=== PATIENT | male | born 1985 | race Caucasian/White ===

== ENCOUNTER 2017-01-13 02:04 | Emergency (ER) | payer OTHER ==
--- NOTE | 2017-01-13 06:35 | ED CLINICAL REPORT ---
Clinical Report - Physicians/Mid Levels [facility] [address] [place] [address] 01/13/2017 2:05 Patient: ZAY RODRIGUEZ Time Seen: 220. Arrived- By private vehicle. Historian- patient and mother. HISTORY OF PRESENT ILLNESS Chief Complaint: PALPITATIONS. It is described as a fast heart beat. Modifying factors. Not worsened by anything. Not relieved by anything. This started today and is still present (Unchanged). It was abrupt in onset and has been constant but is not gone now. The patient has had chest pain. ( reports lleft shoulder discomfort. No trauma. Symptoms occurred at the same time the palpitations happened. Reports no leg swelling, hemoptysis, recent surgery or immobilization/trauma. Reports no history of cancer or history of DVT/PE.). Similar symptoms previously: None. Recent medical care: Not recently seen/assessed. REVIEW OF SYSTEMS No fever, nausea, skin rash or vomiting. All systems otherwise negative, except as recorded above. PAST HISTORY See nurses notes. Medications: GuaiFENesin Oral. Allopurinol. Amlodipine Besy-Benazepril HCl Oral. Primidone Oral. Wellbutrin Oral. Allergies: Amoxicillin. SOCIAL HISTORY Never smoker. No alcohol use or drug use. No recent travel. Is a local resident. ADDITIONAL NOTES The nursing notes have been reviewed. PHYSICAL EXAM Vital Signs: 01/13/2017 02:17 BP: 198/110. 01/13/2017 02:08 BP: 166/117. HR: 112. RR: 24. O2 saturation: 99%. Temp: 98.6 F. Pain level now: 8/10. Oxygen saturation normal. Appearance: Alert. Oriented X3. No acute distress. Eyes: Pupils equal, round and reactive to light. Eyes normal inspection. ENT: Ears normal. Nose normal. Pharynx normal. Neck: Normal inspection. Neck supple. CVS: Normal heart rate and rhythm. Heart sounds normal. Pulses normal. Respiratory: No respiratory distress. Breath sounds normal. Chest nontender. No rales, rhonchi or wheezes. Abdomen: Soft and nontender. Bowel sounds normal. Back: Normal external inspection. Skin: Skin warm and dry. Normal skin color. No rash. Normal skin turgor. Extremities: Extremities exhibit normal ROM. No lower extremity edema. Neuro: Oriented X 3. No motor deficit. No sensory deficit. LABS, X-RAYS, AND EKG EKG: No acute ischemia. Normal sinus rhythm. Rate: 98. Normal P waves. Normal ELISSA. Normal QRS complex. Normal axis. Normal ST and T waves, QT and QTc. Chest X-ray: No acute disease. Normal lung markings present. Normal heart size. Mediastinum normal. Great vessels normal. Soft tissues normal. No infiltrate. No fracture. No bony lesion present. Views: AP (portable). The X-rays were independently viewed by me and interpreted contemporaneously by me. Laboratory Tests: UA-Culture if indicated: (ELEANOR: 01/13/2017 05:10) [facility] Final results Test Result Flag Units (Reference) URINE COLOR YELLOW URINE APPEARANCE CLEAR URINE GLUCOSE TRACE (NEGATIVE) URINE BILIRUBIN NEGATIVE (NEGATIVE) URINE KETONE NEGATIVE (NEGATIVE) URINE SPECIFIC GRAVITY 1.020 (1.010-1.030) URINE PH 6.0 (5.0-8.0) URINE PROTEIN 3+ (NEGATIVE) URINE UROBILINOGEN 0.2 EU/dL (0.2-1.0) URINE NITRITE NEGATIVE (NEGATIVE) URINE BLOOD 1+ (NEGATIVE) URINE LEUK ESTERASE NEGATIVE (NEGATIVE) URINE RBC 0-1 rbc/hpf (0-1) URINE WBC 0-1 wbc/hpf (0-1) URINE EPITHELIAL CELLS 0-1 EPI/hpf (0-5) URINE BACTERIA NONE SEEN (NONE SEEN) URINE COMMENT CULT NOT INDICATED URINE CULTURES ARE SET-UP BASED ON THE FOLLOWING CRITERIA:POSITIVE NITRITEPOSITIVE LEUKOCYTE ESTERASEGREATER THAN 10 WHITE BLOOD CELLSMODERATE (2+) OR GREATER BACTERIA CBC w Diff: (ELEANOR: 01/13/2017 03:00) ( [facility] [place] 01/13/2017 03:13) Final results Test Result Flag Units (Reference) WHITE BLOOD COUNT 9.4 K/uL (4.5-11.5) RED BLOOD COUNT 4.84 M/uL (4.50-5.90) HEMOGLOBIN 14.6 gm/dL (13.5-17.5) HEMATOCRIT 44.4 % (41.0-53.0) MEAN CELL VOLUME 92 fL (80-100) MEAN CORPUSCULAR HGB 30 pg (26-34) MEAN CORPUSCULAR HGB CONC 33 g/dL (31-37) RED CELL DISTRIBUTION WIDTH 14.7 % (11.6-14.8) PLATELET COUNT 361 K/uL (150-400) NEUTROPHIL % 67.9 % (50-75) LYMPH % 17.3 L % (25-40) MONO % 9.3 % (3-14) EOSINOPHIL % 4.9 H % (0-4) BASOPHIL % 0.6 % (0-2) PT with INR: (ELEANOR: 01/13/2017 03:00) ( [facility] 01/13/2017 03:21) Final results Test Result Flag Units (Reference) INR 0.9 (0.8-1.2) Low Intensity Therapy: INR 1.5-2.0 PT range 18.5-23.1Mod.Intensity Therapy: INR 2.0-3.0 PT range 23.1-31.5High Intensity Therapy: INR 2.5-3.5 PT range 27.4-35.5High Intensity Therapy 2: INR 3.0-4.0 PT range 31.5-39.3 Troponin-I: (ELEANOR: 01/13/2017 05:10) ( [facility] 01/13/2017 06:24) Final results Test Result Flag Units (Reference) TROPONIN I 0.06 ng/mL (0.00-1.5) TROPONIN REFERENCE RANGE:<0.1 NEGATIVE0.1-1.5 INDETERMINANT>1.5 POSITIVE Urine Drug Screen: (ELEANOR: 01/13/2017 05:10) ( [facility] 01/13/2017 06:24) Final results Test Result Flag Units (Reference) AMPHETAMINE/METHAMPHETAMINE NEGATIVE (NEGATIVE) BARBITURATE POSITIVE H (NEGATIVE) BENZODIAZEPINE NEGATIVE (NEGATIVE) CANNABINOID NEGATIVE (NEGATIVE) COCAINE NEGATIVE (NEGATIVE) ECSTASY POSITIVE H (NEGATIVE) METHADONE NEGATIVE (NEGATIVE) OPIATE NEGATIVE (NEGATIVE) The urine drug screen is a qualitative screening test fordrug overdose and abuse. All screen results should beconsidered as presumptive.Drugs screened for are as follows:BenzodiazepinesCocaineAmphetamines/MetamphetaminesTHC (Tetrahydrocannabinol)OpiatesBarbituratesEcstasyMethadonePositive results are unconfirmed. For confirmation, notifythe lab for the specimen to be sent to the reference lab.All confirmations must be performed by a differentmethodology.The ingestion of natural herbal and plant productscontaining Ephedra/Ephedra metabolites can produce in urineone or more substances capable of cross reacting withamphetamine/methamphetamine immunoassays. These testsprovide a preliminary result only. A more specificalternative chemical method must be used to obtain aconfirmed analytical result. CMP: (ELEANOR: 01/13/2017 03:00) ( [facility] 01/13/2017 03:28) Final results Test Result Flag Units (Reference) GLUCOSE 108 mg/dL (70-110) BUN 70 H mg/dL (7-18) CREATININE 4.0 H mg/dL (0.6-1.3) Estimated GFR 18.71 mL/min Estimated GFR- 22.67 mL/min Note: Persistent reduction over 3 months in eGFR<60 mL/min/1.73 m2 defines CKD. Patients with eGFR values>=60 mL/min/1.73 m2 may also have CKD if evidence ofpersistent proteinuria. Additional information may be foundat www.kidney.org. SODIUM 135 L mmol/L (136-145) POTASSIUM 3.9 mmol/L (3.5-5.1) CHLORIDE 101 mmol/L (98-107) CARBON DIOXIDE 25 mmol/L (21-32) CALCIUM 9.6 mg/dL (8.5-10.1) TOTAL PROTEIN 8.1 g/dL (6.4-8.2) ALBUMIN 3.4 g/dL (3.3-5.0) BILIRUBIN, TOTAL 0.2 mg/dL (0.0-1.0) ALKALINE PHOSPHATASE 112 U/L (46-116) AST (SGOT) 21 U/L (15-37) ALT (SGPT) 28 U/L (12-78) TROPONIN I 0.06 ng/mL (0.00-1.5) TROPONIN REFERENCE RANGE:<0.1 NEGATIVE0.1-1.5 INDETERMINANT>1.5 POSITIVE . PROGRESS AND PROCEDURES Course of Care: The patient is a pleasant 31-year-old male with past medical history significant for chronic kidney disease and hypertension presented for evaluation of palpitations and chest pain. Patient with no other cardiac risk factors otherwise. Patient will be evaluated with chest x-ray, EKG, and laboratory studies including urinalysis. pain medication provided here in the emergency department. The patient and mother agreeable to the treatment plan. Because of thetime course of the patient's onset of pain, would be concern for possible delay in elevation of troponin. Patient will be evaluated with a delta troponin It the first troponin is noted to be normal. Patient is a low risk on well's criteria for pulmonary embolism. Do not feel further workup is required at this time. The patient's first troponin is noted be negative. No acute abnormalities. Patient reports improvement with his symptoms here in the emergency department. A second troponin has been ordered. Patient's workup is noted to be negative for any acute myocardial infarction. Patient with a troponin 2 which are negative and normal. Patient with elevation in creatinine which appears to be at baseline per his history. Patient states that his"kidney function "is at 25. Because the patient's negative workup. Emergency department and otherwise lack of risk factors for coronary artery disease and relatively young age, feel the patient is a stable outpatient candidate. No acute abdomen maladies noted on patient's workup. Had a discussion with the patient in regards his workup in the emergency department diagnosis, home care, follow-up, and return precautions. All questions have been answered. The patient expressed understanding of these instructions and was agreeable to them. CLINICAL IMPRESSION Essential hypertension. Acute nontraumatic pain in the left upper extremity (shoulder) .12 lead EKG performed. INSTRUCTIONS Warnings: GENERAL WARNINGS: Return or contact your physician immediately if your condition worsens or changes unexpectedly, if not improving as expected, or if other problems arise. SPECIFICALLY, return if you develop chest, neck, jaw, shoulder, arm, or back pain, difficulty breathing, a fluttering sensation in your chest, lightheadedness, fainting, excessive fatigue, or sudden sweating. Your Current Medications: CONTINUE TAKING THE FOLLOWING MEDICATIONS: Allopurinol. Amlodipine Besy-Benazepril HCl Oral. GuaiFENesin Oral. Primidone Oral. Wellbutrin Oral. Prescription Medications: Flexeril 10 mg: take 1 orally every 8 hours as needed for muscle spasm or pain. Dispense twenty (20). No refills. Substitution is permissible. Follow-up: Return to the emergency department as needed. Follow up with your doctor in three days. Reason for referral: recheck today's concerns. Screening today revealed the patient's blood pressure to be in the normal range. The patient should follow up with a primary care provider for blood pressure management. Understanding of the discharge instructions verbalized by patient. (Electronically signed by Hermann Ferguson Dr. 01/15/2017 5:30)
--- NOTE | 2017-01-13 06:35 | ED NURSING NOTES ---
Clinical Report - Nurses [facility] [address] [place] [address] 01/13/2017 2:05 [id number] Triage time 02:09. Acuity: LEVEL 3. Chief Complaint: (neck and left shoulder pain, increases with arm movement). Alert. NICHOL COMA SCORE: Nichol Coma Scale: 15- eyes open spontaneously (4); best verbal response- oriented x 4 (5); best motor response- obeys commands (6). --02:17 Ciro Núñez R.N. 02:01/13/17. BP: 166/117 taken on the left arm. HR: 112. RR: 24 (regular and unlabored). O2 saturation: 99% on room air. Temp: 98.6 F (oral). Pain level now: 04/12. --02:17 Ciro Núñez R.N. <<STRICKEN ENTRY-- 02:01/13/17. BP: 166/117. HR: 112. RR: 24 (regular and unlabored). O2 saturation: 99% on room air. Temp: 98.6 F (oral). Pain level now: 04/12. --02:17 Ciro Núñez R.N. --END STRIKE>> Change to Details. --02:17 Ciro Núñez R.N. 02:01/13/17. BP: 198/110 taken on the right arm. --02:17 Ciro Núñez R.N. Acuity: LEVEL 2. --02:21 Ciro Núñez R.N. Height/Length: 64 inches. --02:10 Ciro Núñez R.N.. Weight: 117.9 kg stated. BMI: 44.6. --02:10 Ciro Núñez R.N. Medications Allopurinol. Amlodipine Besy-Benazepril HCl Oral. Primidone Oral. Wellbutrin Oral. --02:11 Ciro Núñez R.N. GuaiFENesin Oral. --02:12 Ciro Núñez R.N. Allergies Amoxicillin. --02:11 Ciro Núñez R.N. History Arrived by private vehicle, and accompanied by mother. Onset. (3 days ago). SOCIAL HX: Never smoker. No drug use. ( denies HI/SI, states that he feels safe at home). --02:17 Ciro Núñez R.N. PROBLEMS: Adverse Drug Reaction. Renal Insufficiency. Urethritis. Hypertonia. Immunizations. Hydrocephalus. ADD - Attention Deficit Disorder. Hypertension. Depression. Kidney disease. --02:11 Ciro Núñez R.N. ADDITIONAL SURGERIES: "brain shunt". Nephrectomy. --02:11 Ciro Núñez R.N. Interventions ID band on patient. To treatment room. --02:17 Ciro Núñez R.N. PHYSICAL ASSESSMENT Ambulatory to room. ( left shoulder and neck pain for 3 days, pt states having similar pain in left shoulder >1 week ago.). GENERAL / NEURO / PSYCH: Alert. Oriented X 4. HEENT: Mucous membranes are pink. RESPIRATORY: Chest nontender. Breath sounds within normal limits. CVS: Cardiac rhythm: sinus tachycardia. Capillary refill less than 2 seconds. GI / : Abdomen soft and nontender. SKIN: Skin is warm and dry. --02:20 Ciro Núñez R.N. ( Patient states that he forgot to take his morning medications today). --02:23 Ciro Núñez R.N. NURSING PROGRESS NOTES ekg monitor tech, pulse oximeter and NIBP monitor placed on patient. Patient gowned. Head of bed elevated. Reassurance given. Two patient identifiers checked. Call light placed in reach. Side rails up x 1. Bed placed in lowest position. Brakes of bed on. Patient ready for evaluation- chart flagged. Patient waiting for evaluation. --02:23 Ciro Núñez R.N. EKG time: (0238). EKG was ordered, performed by a tech and shown to the ED physician. --02:40 Mariposa Cárdenas 02:52 01/13/2017 Site #1 started via IV in the left antecubital space with an 20g angiocath, with aseptic technique and good blood return; one attempt. Blood drawn: rainbow set. Labeled in the presence of the patient and sent to the lab. Saline lock flushed with 10 mL saline. --03:07 Ciro Núñez R.N. 02:55 01/13/2017 Metoprolol (Metoprolol Tartrate) IVP 5 mg given over 5 minute(s) via site #1. Allergies verified and confirmed 5 rights. IV patency established. IV site checked: no pain, redness, or swelling. IV flushed thoroughly pre- and post-medication administration. IVP given by RN. --03:07 Ciro Núñez R.N. 04:12 01/13/2017 Morphine IVP 4 mg given over 1 minute(s) via site #1. Allergies verified, confirmed 5 rights and sedative warning given to the patient and patient's family. IV patency established. IV site checked: no pain, redness, or swelling. IV flushed thoroughly pre- and post-medication administration. IVP given by RN. --04:15 Rajani Jaramillo R.N. 06:39 01/13/2017 Site #1 removed upon discharge. Manual pressure and bandage applied. --06:39 Ciro Núñez R.N. DISPOSITION / DISCHARGE Departure time: 06:47. Condition at departure: stable. No learning barriers present. Discharge instructions provided and reviewed with the patient. Reviewed warnings. Reviewed medication(s) side effects, precautions, dosing and course information. Prescription(s) given to the patient. Treatments reviewed. Reviewed referrals for followup. Patient verbalized understanding. Written instructions provided in Syriac. The patient was discharged home and accompanied by parent. He left the Emergency Department ambulatory and via private vehicle. Parent driving. --06:48 Ciro Núñez R.N. 06:47 01/13/17. Pain level now 2/10. --06:48 Ciro Núñez R.N. 06:37 01/13/17. BP: 152/94 taken on the right arm, via an automated monitor, while sitting. HR: 81. RR: 18 (regular and unlabored). O2 saturation: 97% on room air. Sanchez-Oliver pain scale: 0/10. Additional comments: NSR on monitor. --06:48 Ciro Núñez R.N. Locked/Released at 01/13/2017 6:48 by Ciro Núñez R.N.
--- NOTE | 2017-01-13 06:36 | ED ORDER SUMMARY ---
..... Patient: ZAY RODRIGUEZ OrderSheet [facility] VisitID: [id number] [address] [place] [address] 31y, M Registration Date/Time: 01/13/2017 ORDER SHEET Weight: 117.9 kg (stated) Allergies: Amoxicillin GENERAL ORDERS: Pain Medicine Physician (Continuous) (palpitations) (02:01/13/2017 Herbert Lundberg) (2:29 DDavis R.N.) CBC w Diff Urgent (02:01/13/2017 Herbert Lundberg) (Ack 2:32 CHagerty ER Fermenting Cellars Receiver) (3:06 DDavis R.N.) CMP Urgent (02:01/13/2017 Herbert Lundberg) (Ack 2:32 [facility] ER [employer]ing Cellars Receiver) (3:06 DDavis R.N.) UA-Culture if indicated Urgent (02:01/13/2017 Herbert Lundberg) (Ack 2:32 [facility]agerty ER [employer]ing Cell[employer] Receiver) (3:14 DDavis R.N.) PT with INR Urgent (02:01/13/2017 Herbert Lundberg) (Ack 2:32 [facility] [employer] Receiver) (3:06 DDavis R.N.) Troponin-I Urgent (02:01/13/2017 Herbert Lundberg) (Ack 2:32 [facility] ER [employer]ing Cell[employer] Receiver) (3:06 DDavis R.N.) Urine Drug Screen Urgent (02:01/13/2017 Herbert Lundberg) (Ack 2:32 CHagerty ER [employer]ing Cellars Receiver) (3:14 DDavis R.N.) EKG - ER Stat (02:01/13/2017 Herbert Lundberg) (Ack 2:32 CHagerty ER [employer]ing Cellars Receiver) (2:39 CHagerty ER Fermenting Cellars Receiver) Pulse oximeter (02:01/13/2017 Herbert Lundberg) (2:29 DDavis R.N.) Chest 1V Urgent (02:43 01/13/2017 Herbert Lundberg) (Ack 2:44 [facility] [employer]ing Cell[employer] Receiver) (2:59 CHagerty ER Fermenting Cellars Receiver) Troponin-I (redraw at 0500) Urgent (03:56 01/13/2017 Herbert Lundberg) (Ack 4:02 [facility] ER Fermenting Cellars Receiver) (5:54 DDavianya R.N.) MEDICATION ORDERS: IV FLUIDS: IV Saline Lock (02:29 01/13/2017 Herbert Lundberg) (3:07 DDavianya R.N.) Metoprolol IV 5 mg (HIGH ALERT MEDICATION, NOW) (02:29 01/13/2017 Herbert Lundberg) (3:07 DDavianya R.N.) Morphine IV 4 mg (HIGH ALERT MEDICATION, NOW) (04:02 01/13/2017 Herbert Lundberg) (Ack 4:08 HKone R.N.) (4:15 HKone R.N.) ORDER SHEET NOTES: [Electronically signed by Ciro Núñez R.N. (06:48 01/13/2017)] [Electronically signed by Hermann Ferguson Dr. (05:30 01/15/2017)] [Electronically locked/signed by Ciro Núñez R.N. (06:48 01/13/2017)]
--- NOTE | 2017-01-13 06:36 | ED ORDER SUMMARY ---
..... Patient: ZAY RODRIGUEZ OrderSheet [facility] VisitID: [id number] [address] [place] [address] 31y, M Registration Date/Time: 01/13/2017 ORDER SHEET Weight: 117.9 kg (stated) Allergies: Amoxicillin GENERAL ORDERS: Tugboat Dispatcher (Continuous) (palpitations) (02:01/13/2017 Herbert Lundberg) (2:29 DDavis R.N.) CBC w Diff Urgent (02:01/13/2017 Herbert Lundberg) (Ack 2:32 [facility] ER Slat Basket Maker) (3:06 DDavis R.N.) CMP Urgent (02:01/13/2017 Herbert Lundberg) (Ack 2:32 [facility] ER Slat Basket Maker) (3:06 DDavis R.N.) UA-Culture if indicated Urgent (02:01/13/2017 Herbert Lundberg) (Ack 2:32 [facility] ER Slat Basket Maker) (3:14 DDavis R.N.) PT with INR Urgent (02:01/13/2017 Herbert Lundberg) (Ack 2:32 [facility] ER Slat Basket Maker) (3:06 DDavis R.N.) Troponin-I Urgent (02:01/13/2017 Herbert Lundberg) (Ack 2:32 [facility] ER Slat Basket Maker) (3:06 DDavis R.N.) Urine Drug Screen Urgent (02:01/13/2017 Herbert Lundberg) (Ack 2:32 [facility] ER Slat Basket Maker) (3:14 DDavis R.N.) EKG - ER Stat (02:01/13/2017 Herbert Lundberg) (Ack 2:32 [facility] ER Slat Basket Maker) (2:39 CHagerty ER Slat Basket Maker) Pulse oximeter (02:01/13/2017 Herbert Lundberg) (2:29 DDavis R.N.) Chest 1V Urgent (02:43 01/13/2017 Herbert Lundberg) (Ack 2:44 [facility] ER Slat Basket Maker) (2:59 CHagerty ER Slat Basket Maker) Troponin-I (redraw at 0500) Urgent (03:56 01/13/2017 Herbert Lundberg) (Ack 4:02 [facility] ER Slat Basket Maker) (5:54 DDavianya R.N.) MEDICATION ORDERS: IV FLUIDS: IV Saline Lock (02:29 01/13/2017 Herbert Lundberg) (3:07 DDavianya R.N.) Metoprolol IV 5 mg (HIGH ALERT MEDICATION, NOW) (02:29 01/13/2017 Herbert Lundberg) (3:07 DDavianya R.N.) Morphine IV 4 mg (HIGH ALERT MEDICATION, NOW) (04:02 01/13/2017 Herbert Lundberg) (Ack 4:08 HKone R.N.) (4:15 HKone R.N.) ORDER SHEET NOTES: [Electronically signed by Ciro Núñez R.N. (06:48 01/13/2017)] [Electronically signed by Hermann Ferguson Dr. (05:30 01/15/2017)] [Electronically locked/signed by Ciro Núñez R.N. (06:48 01/13/2017)]
--- NOTE | 2017-01-13 07:09 | DIAGNOSTIC IMAGING REPORT ---
PROCEDURE: XR CHEST 1 VIEW INDICATION: LEFT UPPER BACK PAIN. HTN. TECHNIQUE: Portable AP view 02:50 a.m. COMPARISON: None. FINDINGS: Poor inspiration but lungs are clear. Heart and mediastinum are normal. Thorax is normal. IMPRESSION: 1. Poor inspiration. No acute changes.
--- NOTE | 2017-01-15 05:30 | ED MAR SUMMARY ---
..... Medication Administration Record [facility] [address] [place] [address] Patient: ZAY RODRIGUEZ Visit ID: [id number] 31y, M Weight: 117.9 kg Height/Length: 64 in BMI: 44.6 ALLERGIES: Amoxicillin Given 02:55 01/13/2017 Ciro Núñez R.N. Medication Administered: METOPROLOL [IVP] (METOPROLOL TARTRATE), Dose: 5 mg IVP over 5 minute(s), Site: #1 left AC. Medication Ordered: Metoprolol IV 5 mg (HIGH ALERT MEDICATION, NOW). Given 04:12 01/13/2017 Rajani Jaramillo R.N. Medication Administered: MORPHINE [IVP], Dose: 4 mg IVP over 1 minute(s), Site: #1 left AC. Medication Ordered: Morphine IV 4 mg (HIGH ALERT MEDICATION, NOW).
--- NOTE | 2017-01-15 05:30 | ED DISCHARGE INSTRUCTIONS ---
Patient: ZAY RODRIGUEZ General Instructions [facility] VisitID: [id number] [place] [address] 31y, M Registration Date/Time: 01/13/2017 Essential hypertension. Acute nontraumatic pain in the left upper extremity (shoulder) .12 lead EKG performed. INSTRUCTIONS Warnings: GENERAL WARNINGS: Return or contact your physician immediately if your condition worsens or changes unexpectedly, if not improving as expected, or if other problems arise. SPECIFICALLY, return if you develop chest, neck, jaw, shoulder, arm, or back pain, difficulty breathing, a fluttering sensation in your chest, lightheadedness, fainting, excessive fatigue, or sudden sweating. Your Current Medications: CONTINUE TAKING THE FOLLOWING MEDICATIONS: Allopurinol. Amlodipine Besy-Benazepril HCl Oral. GuaiFENesin Oral. Primidone Oral. Wellbutrin Oral. Prescription Medications: Flexeril 10 mg: take 1 orally every 8 hours as needed for muscle spasm or pain. Dispense twenty (20). No refills. Substitution is permissible. Follow-up: Return to the emergency department as needed. Follow up with your doctor in three days. Reason for referral: recheck today's concerns. Screening today revealed the patient's blood pressure to be in the normal range. The patient should follow up with a primary care provider for blood pressure management. Understanding of the discharge instructions verbalized by patient. ADDITIONAL INFORMATION High Blood Pressure --Established High Blood Pressure (Hypertension) is a chronic disease. The cause is unknown in most cases. It can usually be controlled with lifestyle changes and/or medicines. Symptoms of high blood pressure may include headache, dizziness, visual changes, chest pain and shortness of breath. Sometimes it causes no symptoms at all. However, even if there are no symptoms, untreated high blood pressure increases the risk of heart attack, also known as acute myocardial infarction, or AMI, and stroke. It is a serious health risk and should not be ignored. A normal blood pressure is 120/80 or less. The first (top) number is the "systolic" pressure. The second (bottom) number is the "diastolic" pressure. Hypertension exists when either the top number is 140 or higher, OR the bottom number is 90 or higher on repeated measurements. Home Care: All patients with high blood pressure should do the following to lower their pressure. If you are on medicines, then these methods may reduce or eliminate your need for medicines in the future. Begin a weight loss program if you are overweight. Reduce your salt intake. Avoid high salt foods (olives, pickles, smoked meats, salted potato chips, etc.). Do not add salt to your food at the table. Use only small amounts of salt when cooking. Begin an exercise program. Discuss with your doctor what type of exercise program would be best for you. It doesn't have to be difficult. Even brisk walking for 20 minutes three times a week is a good form of exercise. Avoid medicines which contain heart stimulants. This includes many cold and sinus decongestant pills and sprays as well as diet pills. Check the warnings about hypertension on the label. Stimulants such as amphetamine or cocaine could be lethal for someone with hypertension. Never take these. Limit your caffeine intake or switch to caffeine-free products. Stop smoking. If you are a long-time smoker, this can be hard. Enroll in a stop-smoking program to improve your chance of success. Learning how to handle stress better is an important part of any program to lower blood pressure. Learn about relaxation methods such as meditation, yoga or biofeedback. If medicines were prescribed, take them exactly as directed. Missing doses may cause your blood pressure get out of control. Consider buying an automatic blood pressure machine (available at most pharmacies). Use this to monitor your blood pressure at home and report the results to your doctor. Follow Up: Regular visits to your own physician for blood pressure checks and medicine adjustment is an important part of your care. Make a follow-up appointment as directed by our staff. Get Prompt Medical Attention if any of the following occur: Chest pain or shortness of breath Severe headache Throbbing or rushing sound in the ears Nosebleed Sudden severe abdominal pain Extreme drowsiness, confusion or fainting Dizziness or vertigo (dizziness with spinning sensation) Weakness of an arm or leg or one side of the face Difficulty with speech or vision Pain, Uncertain Cause [Acute] Pain is the bodys way of calling attention to a problem. Pain can be caused by many conditions - some minor, some serious. In your case, we were not able to find the exact cause for your pain. However, at this time there is no sign of any serious or life-threatening illness causing your pain. Sometimes more tests will be needed to determine the cause. Other times, just allowing more time to pass will either make it clear what the problem is, or the pain will go away by itself. Home Care: You may use acetaminophen (Tylenol) or ibuprofen (Motrin, Advil) to control pain, unless another medicine was prescribed. [NOTE: If you have chronic liver or kidney disease or ever had a stomach ulcer or GI bleeding, talk with your doctor before using these medicines.] Follow Up with your doctor or as advised by our staff. Get Prompt Medical Attention if any of the following occur: Changes in the pattern of your pain Appearance of new symptoms Fever of 100.4F (38C) or higher, or as directed by your healthcare provider Cyclobenzaprine Hydrochloride Oral tablet What is this medicine? CYCLOBENZAPRINE (chase velazquezen) is a muscle relaxer. It is used to treat muscle pain, spasms, and stiffness. How should I use this medicine? Take this medicine by mouth with a glass of water. Follow the directions on the prescription label. If this medicine upsets your stomach, take it with food or milk. Take your medicine at regular intervals. Do not take it more often than directed. Talk to your log operations coordinator regarding the use of this medicine in children. Special care may be needed. What side effects may I notice from receiving this medicine? Side effects that you should report to your doctor or health home care physical therapist as soon as possible: allergic reactions like skin rash, itching or hives, swelling of the face, lips, or tongue chest pain fast heartbeat hallucinations seizures vomiting Side effects that usually do not require medical attention (report to your doctor or health home care physical therapist if they continue or are bothersome): headache What may interact with this medicine? Do not take this medicine with any of the following medications: cisapride droperidol flecainide grepafloxacin halofantrine levomethadyl MAOIs like Carbex, Eldepryl, Marplan, Nardil, and Parnate nilotinib pimozide probucol sertindole This medicine may also interact with the following medications: abarelix alcohol contrast dyes dolasetron guanethidine medicines for cancer medicines for depression, anxiety, or psychotic disturbances medicines to treat an irregular heartbeat medicines used for sleep or numbness during surgery or procedure methadone octreotide ondansetron palonosetron phenothiazines like chlorpromazine, mesoridazine, prochlorperazine, thioridazine some medicines for infection like alfuzosin, chloroquine, clarithromycin, levofloxacin, mefloquine, pentamidine, troleandomycin tramadol vardenafil What if I miss a dose? If you miss a dose, take it as soon as you can. If it is almost time for your next dose, take only that dose. Do not take double or extra doses. Where should I keep my medicine? Keep out of the reach of children. Store at room temperature between 15 and 30 degrees C (59 and 86 degrees F). Keep container tightly closed. Throw away any unused medicine after the expiration date. What should I tell my health care provider before I take this medicine? They need to know if you have any of these conditions: heart disease, irregular heartbeat, or previous heart attack liver disease thyroid problem an unusual or allergic reaction to cyclobenzaprine, tricyclic antidepressants, lactose, other medicines, foods, dyes, or preservatives or trying to get breast-feeding What should I watch for while using this medicine? Check with your doctor or health home care physical therapist if your condition does not improve within 1 to 3 weeks. You may get drowsy or dizzy when you first start taking the medicine or change doses. Do not drive, use machinery, or do anything that may be dangerous until you know how the medicine affects you. Stand or sit up slowly. Your mouth may get dry. Drinking water, chewing sugarless gum, or sucking on hard candy may help. You have been given the following additional information: Hypertension, Established Pain, Uncertain Cause (Acute) Cyclobenzaprine Hydrochloride Oral tablet (Electronically signed by Hermann Ferguson Dr. 01/15/2017 5:30)
--- NOTE | 2017-01-15 05:30 | ED MAR SUMMARY ---
..... Medication Administration Record [facility] [address] [place] [address] Patient: ZAY RODRIGUEZ Visit ID: [id number] 31y, M Weight: 117.9 kg Height/Length: 64 in BMI: 44.6 ALLERGIES: Amoxicillin Given 02:55 01/13/2017 Ciro Núñez R.N. Medication Administered: METOPROLOL [IVP] (METOPROLOL TARTRATE), Dose: 5 mg IVP over 5 minute(s), Site: #1 left AC. Medication Ordered: Metoprolol IV 5 mg (HIGH ALERT MEDICATION, NOW). Given 04:12 01/13/2017 Rajani Jaramillo R.N. Medication Administered: MORPHINE [IVP], Dose: 4 mg IVP over 1 minute(s), Site: #1 left AC. Medication Ordered: Morphine IV 4 mg (HIGH ALERT MEDICATION, NOW).
--- NOTE | 2017-01-15 05:30 | ED MED RECONCILIATION SUMMARY ---
Patient: ZAY RODRIGUEZ Medication Reconciliation Report [facility] VisitID: [id number] [address] [place] [address] 31y, M Registration Date/Time: 01/13/2017 Weight: 117.9 kg Height/Length: 64 in. BMI: 44.6 ALLERGIES: Amoxicillin The patient's Home Medications are listed below: CONTINUE TAKING THE FOLLOWING MEDICATIONS: Allopurinol Amlodipine Besy-Benazepril HCl Oral GuaiFENesin Oral Primidone Oral Wellbutrin Oral The source(s) of the original Home Medication information: Not obtained. The following Medications were given to the patient in the Emergency Department: Metoprolol [IVP] IVP 5 mg, administered: 01/13/2017 2:55:00 AM Morphine [IVP] IVP 4 mg, administered: 01/13/2017 4:12:00 AM The following Medications were prescribed to the patient: Flexeril 10 mg: take 1 orally every 8 hours as needed for muscle spasm or pain. Dispense twenty (20). No refills. Substitution is permissible. -- Hermann Ferguson Dr.
--- NOTE | 2017-01-15 05:30 | ED MED RECONCILIATION SUMMARY ---
Patient: ZAY RODRIGUEZ Medication Reconciliation Report [facility] VisitID: [id number] [address] [place] [address] 31y, M Registration Date/Time: 01/13/2017 Weight: 117.9 kg Height/Length: 64 in. BMI: 44.6 ALLERGIES: Amoxicillin The patient's Home Medications are listed below: CONTINUE TAKING THE FOLLOWING MEDICATIONS: Allopurinol Amlodipine Besy-Benazepril HCl Oral GuaiFENesin Oral Primidone Oral Wellbutrin Oral The source(s) of the original Home Medication information: Not obtained. The following Medications were given to the patient in the Emergency Department: Metoprolol [IVP] IVP 5 mg, administered: 01/13/2017 2:55:00 AM Morphine [IVP] IVP 4 mg, administered: 01/13/2017 4:12:00 AM The following Medications were prescribed to the patient: Flexeril 10 mg: take 1 orally every 8 hours as needed for muscle spasm or pain. Dispense twenty (20). No refills. Substitution is permissible. -- Hermann Ferguson Dr.
== END 2017-01-13 06:49 | disposition home or self-care (01) ==
LOC: ED SRH 02:04
DX: I10 Essential (primary) hypertension (principal); M25.512 Pain in left shoulder; R00.2 Palpitations; N18.9 Chronic kidney disease, unspecified; Z79.899 Other long term (current) drug therapy; Z88.0 Allergy status to penicillin
CPT/HCPCS: 90004; 90100; 90616; 92760; 92761; 92762; 92763; 92764; 92765; 92766; 92767; 94060; 95059